=== PATIENT | female | born 1985 | race Caucasian/White ===

== ENCOUNTER → 2018-05-08 | Outpatient (CLI) | payer BC ==
--- NOTE | 2018-05-08 10:49 | US ---
EXAMINATION TYPE: Transabdominal DATE OF EXAM: 11/26/17 COMPARISON: NONE CLINICAL HISTORY: O46.91 Bleeding. pink discharge turned into red spotting this am. Positive hCG test . EXAM PERFORMED: OBTA/OBTV EXAM MEASUREMENTS: GESTATIONAL AGE / DATING Physician Established: Not yet established Dates by LMP: (6 weeks/1 days) EDC: 12/31/2018 Dates by First Scan: No previous this is first scan Dates by Current Scan for: (5 weeks/3 days) EDC: 01/05/2019 MATERNAL ANATOMY Uterus: 8.8 x 7.6 x 5.1cm Right Ovary: 2.9 x 1.8 x 2.2cm Left Ovary: 2.8 x 2.2 x 1.9cm Post CDS / Adnexa: wnl Presence of free fluid: no Presence of corpus luteal cyst: 2.7cm Presence of subchorionic bleed: no GESTATION / SURVEY CRL: not seen today MSD: 0.9cm (5 weeks/ 3days) Yolk Sac (normal less than 6mm): 0.5cm Date of LMP: 03/26/2018 Beta HcG (if available): not available results called to office @ 10:32, spoke with Carlos Heterogeneous anteverted uterus is seen. Endometrium is thickened up to 15 mm. There is central oval anechoic area with smaller rim hyperechoic anechoic lesion. Findings are suspicious for early gestati onal sac and yolk sac. pole is not clearly seen on today's study. No free fluid is seen in pelv ic cul-de-sac. Both ovaries are seen. No suspicious extraovarian adnexal lesions are present. There is 2.1 cm cyst i n left ovary could reflect corpus luteal cyst. IMPRESSION: Ultrasound findings favor too early to visualize intrauterine , however spontaneous is in differential and ectopic is not excluded. Serial beta-hCG and ultrasound follow-up i s advised.
[2018-05-08 11:13] LABS: HCT 43.6 % (34.0-46.0); HGB 13.7 gm/dL (11.4-16.0); MCH 28.7 pg (25.0-35.0); MCHC 31.5 g/dL (31.0-37.0); MCV 91.2 fL (80.0-100.0); Mean Platelet Volume 7.4; Platelet Count 305 k/uL (150-450); RBC 4.79 m/uL (3.80-5.40); RDW 13.7 % (11.5-15.5); WBC 10.6 k/uL (3.8-10.6)
== END | disposition home or self-care (01) ==
LOC: RADUSWWP 10:01
PROVIDERS: ATTEND Obstetrics & Gynecology
DX: O46.91 Antepartum hemorrhage, unspecified, first trimester (principal); Z3A.00 Weeks of gestation of pregnancy not specified
CPT/HCPCS: 76801; 76817; 84702; 85027; 86850; 86900; 86901

== ENCOUNTER → 2018-05-09 | Outpatient (CLI) | payer BC ==
[2018-05-09 12:18] LABS: HGB 13.4 gm/dL (11.4-16.0); MCH 29.4 pg (25.0-35.0); MCHC 32.7 g/dL (31.0-37.0); MCV 89.9 fL (80.0-100.0); Mean Platelet Volume 7.1; Platelet Count 280 k/uL (150-450); RBC 4.56 m/uL (3.80-5.40); RDW 13.6 % (11.5-15.5); WBC 10.8 k/uL (3.8-10.6)
== END | disposition home or self-care (01) ==
LOC: LABWHC1 11:55
PROVIDERS: ATTEND Obstetrics & Gynecology
DX: O20.0 Threatened abortion (principal); Z3A.00 Weeks of gestation of pregnancy not specified
CPT/HCPCS: 36415; 84702; 85027

== ENCOUNTER → 2018-05-27 | Outpatient (CLI) | payer BC | END | disposition home or self-care (01) | LOC: LABWHC1 06:33 | PROVIDERS: ATTEND Obstetrics & Gynecology | DX: O02.1 Missed abortion (principal) | CPT/HCPCS: 36415; 84702 ==

== ENCOUNTER 2019-05-04 06:27 | Inpatient (IN) | payer BC ==
[2019-05-04] MEDS ORDERED: CARBOPROST TROMETHAMINE 250 MCG/ML 1 ML AMP IM PRN (06:49)
[2019-05-04] MEDS ORDERED: METHYLERGONOVINE 0.2 MG/ML 1 ML AMP IM PRN (06:49)
[2019-05-04] MEDS ORDERED: OXYTOCIN 10 UNIT/ML 1 ML VIAL IM PRN (06:49)
[2019-05-04] MEDS ORDERED: LIDOCAINE 0.5% (PF) 5 MG/ML (50 ML SDV) SQ PRN (06:49)
[2019-05-04] MEDS ORDERED: TERBUTALINE 1 MG/ML VIAL SQ PRN (06:49)
[2019-05-04] MEDS: LACTATED RINGERS 1,000 ML IV SCH ×2 (07:00→09:40)
[2019-05-04] MEDS ORDERED: OXYTOCIN 30 UNITS/500 ML NS 30 UNIT in SALINE 1 500ML.BAG IV SCH (07:00)
[2019-05-04 07:20] LABS: Basophils # (A) 0.1 k/uL (0-0.2); Basophils % (A) 1 %; Eosinophils # (A) 0.1 k/uL (0-0.7); Eosinophils % (A) 1 %; HCT 38.7 % (34.0-46.0); HGB 13.3 gm/dL (11.4-16.0); Lymphocytes # (A) 1.6 k/uL (1.0-4.8); Lymphocytes % (A) 11 %; MCH 31.1 pg (25.0-35.0); MCHC 34.4 g/dL (31.0-37.0); MCV 90.3 fL (80.0-100.0); Mean Platelet Volume 7.9; Monocytes # (A) 0.8 k/uL (0-1.0); Monocytes % (A) 5 %; Neutrophils % (A) 80 %; Platelet Count 257 k/uL (150-450); RBC 4.29 m/uL (3.80-5.40); RDW 13.9 % (11.5-15.5); WBC 15.1 k/uL (3.8-10.6)
[2019-05-04 07:40] VITALS: BMI 38.5
[2019-05-04] MEDS ORDERED: SIMETHICONE 80 MG CHEWABLE PO PRN (11:55)
[2019-05-04] MEDS ORDERED: ACETAMINOPHEN TAB 325 MG TAB PO PRN (11:55)
[2019-05-04] MEDS ORDERED: diphenhydrAMINE 50 MG CAP PO PRN (11:55)
[2019-05-04] MEDS ORDERED: HYDROCORTISONE 2.5% RECTAL CREAM 30 GM TUBE RECTAL PRN (11:55)
[2019-05-04] MEDS ORDERED: LANOLIN CREAM 5 GM TUBE TOPICAL PRN (11:55)
[2019-05-04] MEDS ORDERED: diphenhydrAMINE 50 MG/ML 1 ML VIAL IVP PRN ×2 (11:55)
[2019-05-04] MEDS ORDERED: HYDROcodone/APAP 7.5-325MG 1 EACH TAB PO PRN (11:55)
[2019-05-04] MEDS ORDERED: BENZOCAINE/MENTHOL SPRAY 1 GM/SPRAY AEROSOL TOPICAL PRN (11:55)
[2019-05-04] MEDS ORDERED: diphenhydrAMINE 25 MG CAP PO PRN (11:55)
[2019-05-04] MEDS ORDERED: ZOLPIDEM 5 MG TAB PO PRN (11:55)
[2019-05-04] MEDS ORDERED: HYDROcodone/APAP 5-325MG 1 EACH TAB PO PRN (11:55)
[2019-05-04] MEDS ORDERED: WITCH HAZEL 1 EACH MED..PAD TOPICAL PRN (11:55)
[2019-05-04] MEDS ORDERED: OXYTOCIN 20 UNITS/1000 ML NS 1,000 ML IV SCH (12:00)
--- NOTE | 2019-05-04 12:03 | P.HPOB ---
History of Present Illness H&P Date: 05/04/19 Chief Complaint: 37-2/7 weeks and she , worsening -induced hypertension The patient is a 33-year-old 4 para 2011 admitted at 37-2/7 weeks as established by last Mester. And confirmed by seven-week ultrasound. She is admitted with worsening -induced hypertension. Over the course of the third trimester, she has had significantly increasing requirements for antihypertensives going initially from labetalol 100 mg twice daily to Procardia XL 30 mg daily to Procardia XL 60 mg daily and now with blood pressures remaining in the range of 140s over 90s to 100s. As result and secondary to the patient being term, the decision is made to deliver. Her has otherwise been uncomplicated. She did have a large for gestational age fetus measuring at the 94th percentile at 35 weeks. Group B strep status is negative. On labor and delivery, all signs reassuring. Obstetrical history: 4 para 2011 with 2 previous term deliveries complicated by hypertension and borderline preeclampsia. She had one early miscarriage not requiring D&C. Current statistics are listed in history present illness. EDC of 05/23/2019 was established by last menstrual period and confirmed by a 7 week ultrasound. Laboratory workup done traits of blood type of AB+ with a negative antibody screen. Rubella status is immune. Remainder of the laboratory workup was within normal limits. Early Glucola screening as well as second trimester Glucola screening was within normal limits. Group B strep status is negative. Gynecologic history: Unremarkable with no history of any infections to include STDs. Review of Systems Review of systems is confined to history of present illness. Past Medical History Past Medical History: No Reported History Additional Past Medical History / Comment(s): pt had an 2002 History of Any Multi-Drug Resistant Organisms: None Reported Past Surgical History: No Surgical Hx Reported Additional Past Surgical History / Comment(s): 2002 Past Anesthesia/Blood Transfusion Reactions: Postoperative Nausea & Vomiting (PONV) Past Psychological History: No Psychological Hx Reported Smoking Status: Never smoker Past Drug Use History: None Reported - Past Family History Father Family Medical History: Hypertension Additional Family Medical History / Comment(s): niece with diabetes Medications and Allergies Home Medications Medication Instructions Recorded Confirmed Type Vit No.124/Iron/Folic 1 tab PO DAILY 01/19/15 05/04/19 History [ Vitamin Tablet] NIFEdipine [Procardia] 60 mg PO ONCE 05/15/16 05/04/19 History Allergies Allergy/AdvReac Type Severity Reaction Status Date / Time shellfish derived [Shellfish] Allergy Severe Anaphylaxis Verified 05/04/19 06:48 Exam Vital Signs Temp Pulse Resp BP 05/04/19 11:35 88 18 168/95 05/04/19 11:16 96.9 F L 96 18 178/92 05/04/19 11:05 96 18 178/92 05/04/19 10:50 96.9 F L 102 H 18 134/89 05/04/19 10:35 97.1 F L 127 H 20 129/83 05/04/19 07:33 97.4 F L 95 16 145/97 Intake and Output 05/03/19 05/04/19 05/04/19 22:59 06:59 14:59 Other: Weight 122.016 kg In general, this is a well-developed, well-nourished white female in no acute distress. Her heart has a regular rhythm and rate without murmur. Her lungs are clear to auscultation bilaterally in all smith. Her abdomen is gravid, nondistended, has normal active bowel sounds, soft, nontender, and without any palpable masses aside from uterine fundus. Her extremities are without any cyan osis, clubbing, or significant edema and are nontender to palpation bilaterally. Digital cervical examination on straights her cervix to be 4+ centimeters dilated, 60% effaced, with the vertex in presentation at -2 station. Artificial rupture of membranes is carried out demonstrating copious clear fluid. Results Result Diagrams: 05/04/19 07:05 Abnormal Lab Results - Last 24 Hours (Table) 05/04/19 Range/Units 07:05 WBC 15.1 H (3.8-10.6) k/uL Neutrophils # 12.0 H (1.3-7.7) k/uL Assessment and Plan (1) induced hypertension Current Visit: Yes Status: Acute Code(s): O13.9 - GESTATIONAL HTN W/O SIGNIFICANT PROTEINURIA, UNSP TRIMESTER SNOMED Code(s): 49146694 (2) Term Current Visit: Yes Status: Acute Code(s): Z34.80 - ENCOUNTER FOR SUPRVSN OF NORMAL , UNSP TRIMESTER SNOMED Code(s): 07303593 Plan: The patient is admitted for induction of labor secondary to -induced hypertension with worsening hypertensive features. Workup for preeclampsia other labs has been negative. On labor and delivery, she had Pitocin started followed by artificial rupture of membranes. She will have close maternal and surveillance and expectant management will be practiced. She is a good candidate for either IV or epidural analgesia, whichever she may choose.
--- NOTE | 2019-05-04 12:06 | P.PROBDLV ---
Vaginal Delivery Note - . Vaginal Delivery Note: The patient is a 33-year-old 4 para 2011 admitted at 37-2/7 weeks by good dating parameters. She is admitted for induction of labor secondary to worsening -induced hypertension with no evidence of superimposed preeclampsia. On labor and delivery, all signs reassuring. She does have mildly to moderately elevated blood pressures. She had Pitocin augmentation started and underwent artificial rupture of membranes for a significant amount of clear fluid. She shortly thereafter had an epidural catheter placed for analgesia and made very rapid progress through the active phase of labor to complete where after she pushed over the course of approximately 2 contractions to a normal spontaneous vaginal delivery of a viable 7 lbs. 2 oz. baby girl with Apgars of 9 at 1 minute and 9 at 5 minutes delivered in the left occiput anterior position. There was a loose nuchal cord 1 which was reduced following delivery of the infant. The placenta was delivered spontaneously, intact, and grossly normal with a grossly normal, marginally inserted three-vessel cord. A small midline first degree laceration was noted over the site of a previous repair and was closed with a single [id number] stitch of 3-0 chromic catgut without difficulty. Estimated blood loss for the entire case was approximately 150 mL. There are no complications. All sponge, instrument, and needle counts were correct. Both mother and are resting comfortably in recovery.
[2019-05-04] MEDS ORDERED: ROPIVACAINE 100 MG, fentaNYL (PF) 200 MCG in SODIUM CHLORIDE 0.9% 76 ML EPIDURAL ONE (12:39)
[2019-05-04] MEDS: IBUPROFEN 600 MG TAB PO PRN ×2 (13:02→20:14)
[2019-05-04] MEDS: SENNOSIDES-DOCUSATE SODIUM 1 EACH TAB PO SCH (20:42)
[2019-05-05] MEDS: SENNOSIDES-DOCUSATE SODIUM 1 EACH TAB PO SCH (06:43)
[2019-05-05 07:17] LABS: Basophils # (A) 0.1 k/uL (0-0.2); Basophils % (A) 0 %; Eosinophils # (A) 0.2 k/uL (0-0.7); Eosinophils % (A) 1 %; HCT 39.6 % (34.0-46.0); HGB 13.3 gm/dL (11.4-16.0); Lymphocytes # (A) 2.7 k/uL (1.0-4.8); Lymphocytes % (A) 16 %; MCH 30.7 pg (25.0-35.0); MCHC 33.6 g/dL (31.0-37.0); MCV 91.5 fL (80.0-100.0); Mean Platelet Volume 7.7; Monocytes # (A) 0.7 k/uL (0-1.0); Monocytes % (A) 4 %; Neutrophils # (A) 13.1 k/uL (1.3-7.7); Neutrophils % (A) 77 %; Platelet Count 254 k/uL (150-450); RBC 4.33 m/uL (3.80-5.40); RDW 13.9 % (11.5-15.5)
[2019-05-05] MEDS: IBUPROFEN 600 MG TAB PO PRN (07:38)
[2019-05-05 08:33] VITALS: RESP 16; TEMP 98
--- NOTE | 2019-05-05 08:46 | P.DS ---
Providers Date of admission: 05/04/19 06:27 Expected date of discharge: 05/05/19 Attending physician: Jose Giraldo Primary care physician: Stated None - Discharge Diagnosis(es) (1) induced hypertension Current Visit: Yes Status: Acute (2) Term Current Visit: Yes Status: Acute (3) Normal spontaneous vaginal delivery Current Visit: Yes Status: Acute Hospital Course: The patient is a 33-year-old 4 para 2011 admitted at 37-2/7 weeks by good dating parameters. She is admitted with the increasing blood pressure concerns, worsening -induced hypertension, without evidence of preecl ampsia. She has had increasing requirements of antihypertensives over the course of the third trimester and now, on 60 mg of Procardia XL daily, continues to have blood pressures in the range of 140-150/90-100. As result, we have opted to deliver her. She is admitted and started on Pitocin augmentation after which time she underwent artificial rupture of membranes for a significant amount of clear fluid. An epidural catheter was placed for analgesia. She progressed very rapidly to complete and then pushed quickly to a normal spontaneous vaginal delivery of a viable 7 lbs. 2 oz. baby girl with Apgars of 9 at 1 minute and 9 at 5 minutes. Her course has been unremarkable with vital signs remaining essentially stable and she was afebrile throughout. She has occasional elevated blood pressures in the range of 150/100 but has primarily remained in the range of 1:30 over 80s. As result, she was deemed stable for discharge on day #1 was discharged home to follow-up in the office in 6 weeks' time routinely. Discharge instructions included calling for any significantly increased bleeding or foul-smelling lochia, significantly increased fever or abdominal pain, perineal complaints, breast complaints, blood pressure concerns, or anything else that concerned her. She was additionally instructed to have nothing in the vagina for at least 6 weeks time to include intercourse. She understood her instructions and agrees to follow up as noted above. Discharge medications included Procardia XL 60 mg daily as she has been on at home. She otherwise was to use [id number] analgesic pain medications and continue with vitamins as she has opted to breast-feed. Maternal blood type is AB+ and rubella status is immune. Procedures: #1. Pitocin induction #2. Artificial rupture of membranes #3. Epidural analgesia #4. Normal spontaneous vaginal delivery #5. Repair of perineal laceration Patient Condition at Discharge: Stable Plan - Discharge Summary New Discharge Prescriptions: No Action Vit No.124/Iron/Folic [ Vitamin Tablet] 1 tab PO DAILY NIFEdipine [Procardia] 60 mg PO ONCE Discharge Medication List Vit No.124/Iron/Folic [ Vitamin Tablet] 1 tab PO DAILY 01/19/15 [History] NIFEdipine [Procardia] 60 mg PO ONCE 05/15/16 [History] Follow up Appointment(s)/Referral(s): Jose Giraldo MD [STAFF PHYSICIAN] - 6 Weeks Discharge Disposition: HOME SELF-CARE
[2019-05-05 08:53] VITALS: BP 134/84; PULSE 73
== END 2019-05-05 11:15 | disposition home or self-care (01) | DRG 807 ==
LOC: 4FBP 06:27
PROVIDERS: ADMIT Obstetrics & Gynecology; ATTEND Obstetrics & Gynecology
PROC: 10E0XZZ Delivery of Products of Conception, External Approach (ICD-10-PCS; principal; 2019-05-04)
PROC: 0HQ9XZZ Repair Perineum Skin, External Approach (ICD-10-PCS; 2019-05-04)
PROC: 10907ZC Drainage of Amniotic Fluid, Therapeutic from Products of Conception, Via Natural or Artificial Opening (ICD-10-PCS; 2019-05-04)
PROC: 3E033VJ Introduction of Other Hormone into Peripheral Vein, Percutaneous Approach (ICD-10-PCS; 2019-05-04)
DX: O13.4 Gestational [pregnancy-induced] hypertension without significant proteinuria, complicating childbirth (principal); Z37.0 Single live birth; O69.81X0 Labor and delivery complicated by cord around neck, without compression, not applicable or unspecified; O70.0 First degree perineal laceration during delivery; Z3A.37 37 weeks gestation of pregnancy; Z82.49 Family history of ischemic heart disease and other diseases of the circulatory system
CPT/HCPCS: 85025; 86850; 86900; 86901; 88307

== ENCOUNTER → 2022-02-05 | Outpatient (CLI) | payer BC ==
--- NOTE | 2022-02-05 08:09 | US ---
EXAMINATION TYPE: US kidneys/renal and bladder DATE OF EXAM: 02/05/2022 COMPARISON: NONE CLINICAL HISTORY: M64.50 Low back pain. Frequent UTI's EXAM MEASUREMENTS: Right Kidney: 10.7 x 4.5 x 4.5 cm Left Kidney: 12.1 x 5.0 x 4.4 cm Right Kidney: Mild hydro visualized after post void Left Kidney: No hydronephrosis or masses seen Bladder: wnl Bilateral Jets seen: Yes No nephrolithiasis is seen. No masses are identified. The urinary bladder is anechoic. Bilateral u reteral jets are seen. IMPRESSION: Mild right-sided hydronephrosis noted.
== END | disposition home or self-care (01) ==
LOC: RADUSWWP 07:07
PROVIDERS: ATTEND Family Medicine
DX: N13.30 Unspecified hydronephrosis (principal); M54.50 Low back pain, unspecified
CPT/HCPCS: 76770

== ENCOUNTER 2022-08-03 20:07 | Emergency (ER) | payer BC ==
[2022-08-03 20:16] VITALS: BP 147/92; PULSE 80; RESP 16; TEMP 97
[2022-08-03] MEDS ORDERED: KETOROLAC 15 MG/ML 1 ML VIAL IM STA (20:38)
--- NOTE | 2022-08-03 20:57 | ED ---
Lower Extremity Injury HPI - General Chief Complaint: Extremity Injury, Lower Stated Complaint: lt knee injury Time Seen by Provider: 08/03/22 20:20 Source: patient Mode of arrival: ambulatory Limitations: no limitations - History of Present Illness Initial Comments: Patient is a 36-year-old female presenting with chief complaint of left knee pain. Patient was playing basketball with her daughter when she twisted the knee. She admits to pain with weightbearing. Swelling is noted. States that at rest pain is alleviated down to a 3 out of 10, the pain is intensified with standing and ambulating. Patient states that there was a moment where the wheelchair was bumped and she felt a pop in the knee, she states that since that moment she has had much better range of motion. No numbness or tingling. No weakness. - Related Data Home Medications Medication Instructions Recorded Confirmed No Known Home Medications 08/03/22 08/03/22 Allergies Allergy/AdvReac Type Severity Reaction Status Date / Time shellfish derived [Shellfish] Allergy Severe Anaphylaxis Verified 08/03/22 21:11 Review of Systems ROS Statement: Those systems with pertinent positive or pertinent negative responses have been documented in the HPI. ROS Other: All systems not noted in ROS Statement are negative. Past Medical History Past Medical History: No Reported History Additional Past Medical History / Comment(s): pt had an 2002 History of Any Multi-Drug Resistant Organisms: None Reported Past Surgical History: No Surgical Hx Reported Additional Past Surgical History / Comment(s): 2003 Past Anesthesia/Blood Transfusion Reactions: Postoperative Nausea & Vomiting (PONV) Past Psychological History: No Psychological Hx Reported Smoking Status: Never smoker Past Drug Use History: None Reported - Past Family History Father Family Medical History: Hypertension Additional Family Medical History / Comment(s): niece with diabetes General Exam Limitations: no limitations General appearance: alert, in no apparent distress Head exam: Present: atraumatic, normocephalic, normal inspection Eye exam: Present: normal appearance Neck exam: Present: normal inspection Left Knee exam: Present: full ROM, tenderness, swelling Neurological exam: Present: alert, oriented X3, CN II-XII intact Psychiatric exam: Present: normal affect, normal mood Skin exam: Present: warm, dry, intact, normal color. Absent: rash Course Vital Signs 08/03/22 20:13 Temperature 97 F L Pulse Rate 80 Respiratory 16 Rate Blood Pressure 147/92 O2 Sat by Pulse 100 Oximetry Medical Decision Making - Medical Decision Making Patient is a 86-year-old female presenting with chief complaint of left knee pain. Patient twisted the knee while playing basketball. On examination patient is having little pain at rest, she has good range of motion and no pain to palpation. There is some swelling noted. She admits to pain with weightbearing. X-ray shows no acute fracture or dislocation. This is confirmed by my interpretation. On reassessment patient is resting comfortably. She is provided with crutches and educated on supportive treatment with rest, ice, compression, and elevation as well as Motrin and Tylenol. Follow-up with PCP. Report back to ER with any new or worsening symptoms. Discussed return parameters and answered all questions. Patient conveyed verbal understanding and agreed to the plan. I discussed this case in detail with my attending Dr. Wahl Disposition Clinical Impression: Knee sprain Disposition: HOME SELF-CARE Condition: Good Instructions (If sedation given, give patient instructions): Knee Sprain (ED) Additional Instructions: Follow-up with PCP. Report back to ER with any new or worsening symptoms. Alternate Motrin and Tylenol as needed for pain control. Rest, ice, compress, and elevate the knee as needed. Use crutches as needed. Is patient prescribed a controlled substance at d/c from ED?: No Referrals: None,Stated [REFERRING] - 1-2 days Time of Disposition: 21:47
--- NOTE | 2022-08-03 21:16 | XR ---
EXAMINATION TYPE: XR knee complete LT DATE OF EXAM: 08/03/2022 8:48 PM INDICATION: Patient age:Female; 36 years old; Reason for study: knee pain, twisted while playing basketball; COMPARISON: None. TECHNIQUE: The Left knee(s) was examined in Frontal, lateral and oblique projections. FINDINGS: No evidence of any acute osseous pathology, joint space narrowing, soft tissue swelling, or joint effusion is noted. IMPRESSION: 1. No acute osseous pathology.
== END 2022-08-03 22:04 | disposition home or self-care (01) ==
LOC: EC 20:07
DX: S83.92XA Sprain of unspecified site of left knee, initial encounter (principal); Z91.013 Allergy to seafood; X50.1XXA Overexertion from prolonged static or awkward postures, initial encounter; Y93.67 Activity, basketball; Y92.009 Unspecified place in unspecified non-institutional (private) residence as the place of occurrence of the external cause
CPT/HCPCS: 99283 ×2; 96372 ×2; 73562; J1885

== ENCOUNTER → 2024-08-20 | Outpatient (CLI) | payer BC ==
--- NOTE | 2024-08-24 17:17 | MM ---
Reason for Exam: Screening (asymptomatic). Baseline mammogram. Patient History: Menarche at age 13. First Full-Term at age 30. Late child-bearing (after 30). Patient has history of breast feeding. Last menstrual period: 08/06/2024 Risk Values: Renetta 5 year model risk: 0.6%. NCI Lifetime model risk: 13.7%. Prior Study Comparison: Patient's first Mammogram. Tissue Density: The breasts are heterogeneously dense, which may obscure small masses. Findings: Analyzed By CAD. No significant mass, suspicious microcalcification, or other discrete abnormality is seen. Overall Assessment: Negative, BI-RAD 1 Management: Screening Mammogram of both breasts in 1 year. . Patient should continue monthly self-breast exams. A clinical breast exam by your physician is recommended on an annual basis. This exam should not preclude additional follow-up of suspicious palpable abnormalities. Note on Renetta scores and lifetime risk: 1. A Renetta score greater than 3% is considered moderate risk. If this is the case, consider specialist referral to assess eligibility for a risk reducing agent. 2. If overall lifetime risk for the development of breast cancer is 20% or higher, the patient may qualify for future screening with alternating mammogram and breast MRI. [facility], , 08/24/2024 5:14 PM. Electronically signed and approved by: Azalia Coon M.D. Radiologist
== END | disposition home or self-care (01) ==
LOC: RADMAMWWP 09:26
PROVIDERS: ATTEND Obstetrics & Gynecology
DX: Z12.31 Encounter for screening mammogram for malignant neoplasm of breast (principal); R92.333 Mammographic heterogeneous density, bilateral breasts
CPT/HCPCS: 77063; 77067